=== PATIENT | female | born 1970 | race Caucasian/White ===

== ENCOUNTER 2017-03-24 13:48 | Emergency (ER) | payer MEDICAID ==
[2017-03-24 15:45] LABS: BASOPHIL % 0.9 % (0-2); PLATELET COUNT 297 x10^3mcL (130-400)
[2017-03-24 15:56] LABS: RED CELL DISTRIBUTION WIDTH 16.3 % (11.5-14.5)
[2017-03-24 16:17] VITALS: BP 115/77
== END 2017-03-24 16:17 | disposition home or self-care (01) ==
LOC: ED 13:48
PROVIDERS: Emergency Medicine
DX: N92.0 Excessive and frequent menstruation with regular cycle (principal)
CPT/HCPCS: 36415

== ENCOUNTER 2018-08-20 19:53 | Emergency (ER) | payer MEDICAID ==
[~2018-08-20] VITALS: Ht 167.6 cm; Wt 79.4 kg
[2018-08-20 20:10] VITALS: Ht 167.6 cm; Wt 79.4 kg
[2018-08-20 21:34] LABS: BASOPHIL % 0.9 % (0-2); CALCIUM 8.5 mg/dL (8.5-10.1); CARBON DIOXIDE 24.5 mmol/L (21-32); CHLORIDE SERUM 103 mmol/L (98-107); CREATININE SERUM 0.8 mg/dL (0.6-1.0); GFR1 > 60 mL/min; GLUCOSE SERUM 104 mg/dL (74-106); PLATELET COUNT 333 x10^3mcL (130-400); POTASSIUM SERUM 3.4 mmol/L (3.5-5.1); SODIUM SERUM 137 mmol/L (136-145)
[2018-08-20 21:35] LABS: RED CELL DISTRIBUTION WIDTH 15.5 % (11.5-14.5)
[2018-08-20 21:38] LABS: ALBUMIN 3.5 g/dL (3.4-5.0); ALKALINE PHOSPHATASE 82 U/L (46-116); ALT/SGPT 25 U/L (14-59); AST/SGOT 14 U/L (15-37); BILIRUBIN TOTAL 0.17 mg/dL (0.20-1.00); C REACTIVE PROTEIN 0.8 mg/dL (<=0.9); TOTAL PROTEIN, SERUM 7.7 g/dL (6.4-8.2)
[2018-08-21] VITALS: BP 130/74
== END 2018-08-21 | disposition home or self-care (01) ==
LOC: ED 19:53
PROVIDERS: Emergency Medicine
DX: M25.512 Pain in left shoulder (principal); M79.622 Pain in left upper arm; M54.2 Cervicalgia; Z86.2 Personal history of diseases of the blood and blood-forming organs and certain disorders involving the immune mechanism
CPT/HCPCS: 36415; J1885

== ENCOUNTER 2019-10-18 13:27 | Emergency (ER) | payer MEDICAID, SELFPAY ==
[~2019-10-18] VITALS: Ht 167.6 cm; Wt 78.9 kg
[2019-10-18 13:45] VITALS: Ht 167.6 cm; Wt 78.9 kg
[2019-10-18 14:23] VITALS: BP 134/69
== END 2019-10-18 14:23 | disposition home or self-care (01) ==
LOC: ED 13:27
DX: J45.909 Unspecified asthma, uncomplicated (principal); I10 Essential (primary) hypertension; Z20.828 Contact with and (suspected) exposure to other viral communicable diseases; Z86.2 Personal history of diseases of the blood and blood-forming organs and certain disorders involving the immune mechanism
CPT/HCPCS: Q0092; U0003-CS

== ENCOUNTER 2020-01-21 22:17 | Emergency (ER) | payer MEDICAID ==
[~2020-01-21] VITALS: Ht 170.2 cm; Wt 81.2 kg
[2020-01-21 22:25] VITALS: Ht 170.2 cm; Wt 81.2 kg
[2020-01-21 23:03] LABS: CALCIUM 8.9 mg/dL (8.5-10.1); CARBON DIOXIDE 26.1 mmol/L (21-32); CHLORIDE SERUM 103 mmol/L (98-107); CREATININE SERUM 0.8 mg/dL (0.6-1.0); GFR1 > 60 mL/min; GLUCOSE SERUM 104 mg/dL (74-106); POTASSIUM SERUM 3.1 mmol/L (3.5-5.1); SODIUM SERUM 137 mmol/L (136-145)
[2020-01-21 23:09] LABS: ALBUMIN 3.9 g/dL (3.4-5.0); ALKALINE PHOSPHATASE 79 U/L (46-116); ALT/SGPT 25 U/L (14-59); AST/SGOT 16 U/L (15-37); BILIRUBIN TOTAL 0.2 mg/dL (0.20-1.00); TOTAL PROTEIN, SERUM 7.9 g/dL (6.4-8.2)
[2020-01-21 23:25] LABS: BASOPHIL % 1.5 % (0-2); PLATELET COUNT 375 x10^3mcL (130-400)
[2020-01-21 23:30] LABS: RED CELL DISTRIBUTION WIDTH 17.5 % (11.5-14.5)
[2020-01-22 02:29] VITALS: BP 124/79
== END 2020-01-22 02:34 | disposition home or self-care (01) ==
LOC: ED 22:17
DX: R20.2 Paresthesia of skin (principal); R07.89 Other chest pain; J45.909 Unspecified asthma, uncomplicated; I10 Essential (primary) hypertension; Z86.2 Personal history of diseases of the blood and blood-forming organs and certain disorders involving the immune mechanism; Z98.890 Other specified postprocedural states
CPT/HCPCS: Q0092

== ENCOUNTER 2020-04-05 14:29 | Emergency (ER) | payer MEDICAID ==
[~2020-04-05] VITALS: Ht 165.1 cm; Wt 83.0 kg
[2020-04-05 14:35] VITALS: BP 150/89; Ht 165.1 cm; Wt 83.0 kg
[2020-04-05 16:06] LABS: BASOPHIL % 1.4 % (0.2-1.3); PLATELET COUNT 369 x10^3mcL (179-408)
[2020-04-05 16:15] LABS: RED CELL DISTRIBUTION WIDTH 20.4 % (12.3-17.7)
[2020-04-05 16:32] LABS: CALCIUM 8.2 mg/dL (8.5-10.1); CARBON DIOXIDE 24.6 mmol/L (21-32); CHLORIDE SERUM 104 mmol/L (98-107); CREATININE SERUM 0.7 mg/dL (0.6-1.0); GFR1 > 60 mL/min; GLUCOSE SERUM 84 mg/dL (74-106); POTASSIUM SERUM 3.6 mmol/L (3.5-5.1); SODIUM SERUM 139 mmol/L (136-145)
[2020-04-05 16:37] LABS: ALBUMIN 3.6 g/dL (3.4-5.0); ALKALINE PHOSPHATASE 58 U/L (46-116); ALT/SGPT 21 U/L (14-59); AST/SGOT 16 U/L (15-37); BILIRUBIN TOTAL 0.2 mg/dL (0.20-1.00); TOTAL PROTEIN, SERUM 7.3 g/dL (6.4-8.2)
== END 2020-04-05 18:08 | disposition home or self-care (01) ==
LOC: ED 14:29
PROVIDERS: Emergency Medicine
DX: N93.9 Abnormal uterine and vaginal bleeding, unspecified (principal); Z13.9 Encounter for screening, unspecified

== ENCOUNTER 2020-04-14 13:41 | Emergency (ER) | payer MEDICAID ==
[~2020-04-14] VITALS: Ht 165.1 cm; Wt 83.5 kg
[2020-04-14 15:07] VITALS: BP 149/89
== END 2020-04-14 16:23 | disposition home or self-care (01) ==
LOC: ED 13:41
DX: S61.012A Laceration without foreign body of left thumb without damage to nail, initial encounter (principal); W26.0XXA Contact with knife, initial encounter; Y93.89 Activity, other specified; Y92.89 Other specified places as the place of occurrence of the external cause; Y99.8 Other external cause status
CPT/HCPCS: 90715; A4570; J2001